=== PATIENT | female | born 1980 | race Caucasian/White ===

== ENCOUNTER 2024-04-22 16:34 | Outpatient (REF) | payer OTHER, SELFPAY ==
[2024-04-22 18:06] LABS: Erythrocyte Sedimentation Rate 33 MM/HR (0-20)
[2024-04-23 11:07] LABS: Lyme Abs Screen <0.90 index
== END 2024-04-22 16:35 | disposition home or self-care (01) ==
LOC: HO.LAB 16:34
PROVIDERS: PCP Internal Medicine; Visit Provider Psychiatry & Neurology Neurology
DX: R20.2 Paresthesia of skin (principal)
CPT/HCPCS: 36415; 85652; 86617; 86618